=== PATIENT | male | born 1975 | race Caucasian/White ===

== ENCOUNTER 2022-10-24 19:51 | Observation (INO) ==
[2022-10-24] MEDS ORDERED: SODIUM CHLORIDE 1,000 ML IV STA (20:03)
[2022-10-24] MEDS ORDERED: ASPIRIN CHEWABLE PO STA (20:03)
[2022-10-24] MEDS ORDERED: NITROSTAT SL PRN ×2 (20:03→22:57)
--- NOTE | 2022-10-24 20:03 | ED.PDOC ---
General ED Provider: Dr. RYAN ALCANTARA MD Chief Complaint: Chest Pain Stated Complaint: PATIENT WITH A HISTORY OF HYPERTENSION, NONCOMPLAINT WITH MEDICATIONS COMPLAINS OF SHARP SUBSTERNAL CHEST PAIN INTERMITTENT X 1 WEEK. HAS OCCASIONAL DYSPNEA AND PAIN RADIATING TO HIS LEFT ARM. RATES HIS PAIN 4/10 SCALE. DENIES DIAPHORESIS OR PALPITATIONS. Time Seen by Provider: 10/24/22 20:02 Mode of Arrival: Walk-In Information Source: Patient Exam Limitations: No limitations Primary Care Provider: ALEXANDRA HARRIS Nursing and Triage Documentation Reviewed and Agree: Yes Does patient meet sepsis criteria?: No System Inflammatory Response Syndrome: Not Applicable Sepsis Protocol: For patient's 13 years and over: Temp is 96.8 and below OR 101 and greater Pulse >90 BPM Resp >20/minute Acutely Altered Mental Status Are patient's symptoms suggestive of a new infection, such as: -Pneumonia -Skin, Soft Tissue -Endocarditis -UTI -Bone, Joint Infection -Implantable Device -Acute Abdominal Infection -Wound Infection -Meningitis -Blood Stream Catheter Infection -Unknown Cardiovascular Complaint Exam Chest Pain Complaint/Exam Onset: Sudden Duration: PAST WEEK Symptoms Are: Still present Timing: Intermittent Length of Chest Pain Episodes: 2-3 HOURS Initial Severity: Moderate Current Severity: Moderate Location: Reports Diffuse Pain Radiates: Reports Left shoulder Character: Reports Sharp Aggravating: Reports None Alleviating: Reports None Associated Signs and Symptoms: Reports Short of air Related History: Reports Similar episode Related Surgical History: Reports None History of Healthcare-Acquired Pneumonia: Reports No AMI/ACS Risk Factors: Reports Hypertension (OFF MEDICATION) TAD Risk Factors: Reports Hypertension Pulmonary Embolism Risk Factors: Reports None Prior Care for this Complaint: No Recent Stress Test: No Recent Echo/LV Function: No JVD Present: No Subcutaneous Emphysema Present: No Diminshed Breath Sounds: No Reproducible Chest Wall Pain: No Bilateral Pulses Present: No Unequal Pulses Noted: No If Risk Factors for AMI/ACS Consider: Cardiac Enzymes and Serial Studies If Risk Factors for PE Consider: Chest CT with contrast If Risk Factors for TAD Consider: Chest CT with contrast Differential Diagnoses: Acute OK, ACS, Unstable Angina and Chest Wall Pain Review of Systems Review Of Systems Constitutional: Reports No symptoms Eyes: Reports No symptoms Ears, Nose, Mouth, Throat: Reports No symptoms Respiratory: Reports No symptoms and Short of air; Denies Cough or Orthopnea Cardiac: Reports Chest pain; Denies Edema, Irregular heart rate, Lightheadedness, Palpitations or Syncope GI: Reports No symptoms; Denies Abdomen distended, Abdominal pain or Blood streaked bowels : Reports No symptoms Musculoskeletal: Reports No symptoms Skin: Reports No symptoms Neurological: Denies Anxiety, Depressed or Emotional problems Endocrine: Reports No symptoms; Denies Excessive sweating, Flushing or Intolerance to cold Hematologic/Lymphatic: Reports No symptoms; Denies Anemia, Blood clots or Easy bleeding All Other Systems: Reviewed and Negative [facility] Social History Smoking and tobacco status: Current every day smoker Physical Exam Physical Exam Appearance: Reports Well-appearing Ill-appearing: Not Applicable Pain Distress: Not Applicable Eyes: Denies Conjunctiva inflammed, Conjunctiva pale or Right pupil size ENT: Reports Ears normal, Nose normal and Oropharynx normal; Denies TMs Occluded or Rhinorrhea Neck: Supple Respiratory: Reports Airway patent, Breath sounds clear and Breath sounds equal; Denies Breath sounds diminished or Respirations nonlabored Cardiovascular: Reports RRR, Pulses normal, No rub and No murmur; Denies Irregular rhythm, Tachycardia, Bradycardia or Abnormal pulses GI/: Reports Soft, Nontender, Bowel sounds normal and No Organomegaly; Denies Tender or Mass Musculoskeletal: Reports Normal strength, ROM intact and No calf tenderness; Denies Limited ROM Skin: Reports Warm and Normal color; Denies Pale, Diaphoretic or Cyanotic Neurological: Reports Sensation intact, Motor intact, Reflexes intact and Cranial nerves intact Psychiatric: Reports Affect appropriate and Mood appropriate; Denies Anxious or Depressed Interpretation Radiology Interpretation Radiology Interpretation By: ED Physician Radiology Results: Negative Exam Interpreted: Portable CXR Xray Comments: PORTABLE CHEST XRAY INTERPRETED BY MYSELF, NO ACUTE CARDIOPULMONARY PROCESS Spray Crew Time of Spray Crew Interpretation: 20:30 Rate: Normal Rhythm: Sinus Ectopy: None EKG Interpretation Time of EKG #1: 19:59 Rate: Normal Rhythm: Sinus Ectopy: None [place]: NL ST Segment: Normal Interpretation: EKG INTERPRETED BY MYSELF, NSR RATE 74, NORMAL AXIS, SHORT TN INTERVAL Time of EKG #2: 22:13 Rate: Normal Rhythm: Sinus Ectopy: None [place]: NL ST Segment: Normal EKG Interpretation: INTERPRETED BY MYSELF, NSR, RATE 68, NORMAL AXIS, NO ISCHEMIC CHANGES Re-Evaluation Re-Evaluation Time of Re-Evaluation: 20:45 Status: Improved Vital Signs Stable: Yes Pain Level: COMPLETE RESOLUTION OF CHEST PAIN AFTER NTG 0.4MG SL Appearance: NAD Lungs: Clear Skin: Warm and Dry Neuro: Alert and Oriented X3 CV: RRR Physician Notification Case Discussed Physician Notified: HOSPITALIST GREGORY Time of Notification: 22:48 Comments: PATIENT HISTORY OF HYPERTENSION, PRESENT ILLNESS AND HOSPITAL COURSE DISCUSSED FOR ADMIT TO OBSERVATION Critical Care Note Critical Care Note Total Critical Care Time (mins): 20 Course Course 10/24/22 20:10 10/24/22 20:10 Orders, Labs, Meds: Lab Review 10/24/22 20:10 WBC 8.71 RBC 5.79 Hgb 17.3 Hct 51.5 MCV 88.9 MCH 29.9 MCHC 33.6 RDW Coeff of Lesley 12.6 Plt Count 304 Immature Gran % (Auto) 0.5 Neut % (Auto) 66.9 Lymph % (Auto) 22.0 [place] % (Auto) 6.5 Eos % (Auto) 3.4 Baso % (Auto) 0.7 Neut # (Auto) 5.8 Lymph # (Auto) 1.9 [place] # (Auto) 0.6 Eos # (Auto) 0.3 Baso # (Auto) 0.1 Immature Gran # (Auto) 0.0 PT 9.8 INR 0.94 APTT 28.5 Sodium 137.4 Potassium 4.49 Chloride 104.4 Carbon Dioxide 30.2 H Anion Gap 7.29 BUN 16.6 Creatinine 1.00 Estimated GFR (MDRD) 80.00 BUN/Creatinine Ratio 16.60 Glucose 100.1 Calcium 8.57 Magnesium 2.12 Total Bilirubin 0.58 AST 35.2 ALT 48.3 Alkaline Phosphatase 108.8 Troponin I < 0.012 Total Protein 7.01 Albumin 4.19 Globulin 2.82 Albumin/Globulin Ratio 1.48 D-Dimer 208.72 Orders Category Date Time Status EKG-(ED ONLY) Stat CARDIO 10/24/22 20:03 Completed TELEMETRY MONITORING TELE CARE 10/24/22 20:03 Active IV [ED IV/MEDIPORT/POWERPORT] .ONCE EMERGENCY 10/24/22 20:03 Active CBC W/ AUTO DIFF Stat LAB 10/24/22 20:10 Completed CMP [COMPREHENSIVE METABOLIC PANEL] Stat LAB 10/24/22 20:10 Completed D-DIMER Stat LAB 10/24/22 20:10 Completed MAGNESIUM Stat LAB 10/24/22 20:10 Completed PT WITH INR Stat LAB 10/24/22 20:10 Completed PTT [PARTIAL THROMBOPLASTIN TIME] Stat LAB 10/24/22 20:10 Completed TROPONIN I Stat LAB 10/24/22 20:10 Completed 0.9 % Sodium Chloride [Saline Flush] MEDS 10/24/22 20:03 Active 1 syr IVF PRN PRN Acetaminophen [Tylenol] MEDS 10/24/22 20:43 Discontinued 650 mg PO ONCE ONE Aspirin [Aspirin Chewable] MEDS 10/24/22 20:03 Discontinued 324 mg PO ONCE STA Nitroglycerin [Nitro-Bid] MEDS 10/24/22 20:43 Discontinued 1 inch TD ONCE STA Nitroglycerin [Nitrostat] MEDS 10/24/22 20:03 Active 0.4 mg SL Q5MIN X 3 DOSES PRN Sodium Chloride 0.9% [Sodium Chloride] 1,000 ml MEDS 10/24/22 20:03 Active IV 50 mls/hr CHEST, 1V AP ONLY Stat RADS 10/24/22 20:03 Completed Medications Generic Name Dose Route Start Last Admin Trade Name Freq PRN Reason Stop Dose Admin Sodium Chloride 1,000 mls @ 50 mls/hr 10/24/22 20:03 10/24/22 20:12 Sodium Chloride IV 10/25/22 16:02 50 mls/hr .Q20H STA Administration Nitroglycerin 0.4 mg 10/24/22 20:03 10/24/22 20:12 Nitroglycerin 0.4 Mg Tab.Subl SL 0.4 mg Q5MIN X 3 DOSES PRN Administration Chest Pain Sodium Chloride 1 syr 10/24/22 20:03 0.9% Sodium Chloride 10 Ml Disp.Syrin IVF PRN PRN To flush IV Discontinued Medications Generic Name Dose Route Start Last Admin Trade Name Freq PRN Reason Stop Dose Admin Acetaminophen 650 mg 10/24/22 20:43 10/24/22 20:51 Acetaminophen 325 Mg Tablet PO 10/24/22 20:44 650 mg ONCE ONE Administration Aspirin 324 mg 10/24/22 20:03 10/24/22 20:12 Aspirin 81 Mg Tab.Chew PO 10/24/22 20:04 324 mg ONCE STA Administration Nitroglycerin 1 inch 10/24/22 20:43 10/24/22 21:02 Nitroglycerin 1 Gm Oint TD 10/24/22 20:44 1 inch ONCE STA Administration Vital Signs: Temp Pulse Resp BP Pulse Ox 10/24/22 21:22 69 16 131/93 H 96 10/24/22 19:54 99.4 F 75 18 168/99 H 98 AMI Core Clinical Trial Participant Clinical Trial Participant: No Palliative Care Palliative Care: none Statins Reason for not ordering Statins: not indicated Fibrinolytic Reason for not ordering Fibrinolytic: not indicated EKG Initial Interpretation EKG Initial Interpretation Date: 10/24/22 EKG Initial Interpretation Time: 19:59 DANE Risk Score Age >/= 65: No >/= 3 CAD Risk Factors: Yes Known CAD (Stenosis >/= 50%): No ASA Use in Past 7 Days: No Severe Angina (>/= 2 episodes in 24 hours): Yes EKG ST Changes >/= 0.5mm: No Postive Cardiac Marker: No DANE Total Score: 2 DANE Risk Score: Risk Score Odds of by 30D 0 0.1 (0.1-0.2) 1 0.3 (0.2-0.3) 2 0.4 (0.3-0.5) 3 0.7 (0.6-0.9) 4 1.2 (1.0-1.5) 5 2.2 (1.9-2.6) 6 3.0 (2.5-3.6) 7 4.8 (3.8-6.1) Discharge Plan Discharge Patient Disposition: PLACED OBSERVATION Discharge Problem: Acute chest pain Did you review [place] LITERARY AGENT for ALL controlled substances?: Not Applicable ED Provider: RYAN ALCANTARA Condition: Stable Physician Progress Note: MDM HISTORY OBTAINED BY PATIENT AND HIS FAMILY [] PATIENT WITH A HISTORY OF HYPERTENSION, NONCOMPLAINT WITH MEDICATIONS COMPLAINS OF SHARP SUBSTERNAL CHEST PAIN INTERMITTENT X 1 WEEK. HAS OCCASIONAL DYSPNEA AND PAIN RADIATING TO HIS LEFT ARM. RATES HIS PAIN 4/10 SCALE. DENIES DIAPHORESIS OR PALPITATION ADMINISTERED ASPIRIN 324MG ORALLY, NITROGLYCERIN 0.4MG SL WITH COMPLETE RESOLUTION OF PAIN PATIENT GIVEN TYLENOL 650MG ORALLY AND NITRO PASTE 1"ANTERIOR CHEST WALL 1958-EKG NSR RATE 74, NORMAL AXIS, SHORT TN INTERVAL NO ISCHEMIC CHANGES 2213 REPEAT EKG C/W NORMAL SINUS RHYTHM, RATE 68,NORMAL AXIS NO ISCHEMIC CHANGES, INTERPRETED BY MYSELF ALL LABS INTERPRETED BY MYSELF AND ARE WITHIN NORMAL LIMITS TROPONIN 0.012 DANE SCORE-2 DIFF DIAGNOSIS; 1) ACUTE CHEST PAIN 2)NONSTEMI 3)ACUTE CORONARY SYNDROME 4)PULMONARY EMBOLI DISCUSSED WITH HOSPITALIST GREGORY AT 2248 FOR ADMIT TO OBSERVATION
[2022-10-24 20:22] LABS: BASOPHILS # (AUTO) 0.1 K/uL (0-0.2); BASOPHILS % (AUTO) 0.7 % (0.0-3.0); EOSINOPHILS # (AUTO) 0.3 K/ul (0.0-0.7); EOSINOPHILS % (AUTO) 3.4 % (0.0-7.0); HEMATOCRIT 51.5 % (42.0-52.0); HEMOGLOBIN 17.3 g/dl (14.0-18.0); IMMATURE GRANULOCYTE % (AUTO) 0.5 % (0.0-5.0); LYMPHOCYTES # (AUTO) 1.9 K/uL (0.60-3.4); MEAN CORPUSCULAR HEMOGLOBIN 29.9 pg (27.0-31.0); MEAN CORPUSCULAR HGB CONC 33.6 (31.8-35.4); MEAN CORPUSCULAR VOLUME 88.9 fl (80.0-94.0); MONOCYTES # (AUTO) 0.6 K/uL (0.4-2.0); MONOCYTES % (AUTO) 6.5 (0-10); NEUTROPHILS # (AUTO) 5.8 K/ul (2.0-6.9); NEUTROPHILS % (AUTO) 66.9 % (42.2-75.2); PLATELET COUNT 304 10^3/uL (140-440); RDW COEFFICIENT OF VARIATION 12.6 % (11.6-14.8); RED BLOOD COUNT 5.79 10^6/ul (4.70-6.10); WHITE BLOOD COUNT 8.71 K/ul (4.2-10.2)
--- NOTE | 2022-10-24 20:26 | DI ---
EXAM: SINGLE VIEW OF THE CHEST. History: Dyspnea. Comparison: Chest radiograph 12/17/2020 FINDINGS: Heart size is normal. No consolidation. No pleural fluid and no pneumothorax. No acute osseous abnormalities. Impression: No acute cardiopulmonary process
[2022-10-24 20:34] LABS: ALANINE AMINOTRANSFERASE 48.3 U/L (0-50); ALBUMIN 4.19 g/dL (3.5-5.0); ALKALINE PHOSPHATASE 108.8 U/L (38-126); ASPARTATE AMINO TRANSFERASE 35.2 U/L (17-59); BILIRUBIN,TOTAL 0.58 mg/dL (0.2-1.3); BLOOD UREA NITROGEN 16.6 mg/dL (9-20); CALCIUM 8.57 mg/dL (8.4-10.2); CARBON DIOXIDE 30.2 mmol/L (22-30.0); CHLORIDE 104.4 mmol/L (98-107); GLUCOSE 100.1 mg/dL (74-106); MAGNESIUM 2.12 mg/dL (1.6-2.3); POTASSIUM 4.49 mmol/L (3.5-5.1); SODIUM 137.4 mmol/L (134.5-145); TOTAL PROTEIN 7.01 g/dL (6.3-8.2)
[2022-10-24] MEDS ORDERED: NITRO-BID TD STA (20:43)
[2022-10-24] MEDS ORDERED: TYLENOL PO ONE (20:43)
[2022-10-24 20:44] LABS: PARTIAL THROMBOPLASTIN TIME 28.5 SEC (23.9-40.0); PROTHROMBIN TIME 9.8 SEC (9.3-11.0)
[2022-10-24 20:46] LABS: TROPONIN I < 0.012 ng/ml (0.0000-0.120)
[2022-10-24] MEDS ORDERED: TYLENOL PO PRN (22:57)
[2022-10-24] MEDS ORDERED: ZOFRAN 4 MG/2 ML IVP PRN (22:59)
[2022-10-24 23:44] VITALS: BMI 29.2
[2022-10-25 05:19] LABS: BASOPHILS # (AUTO) 0.1 K/uL (0-0.2); BASOPHILS % (AUTO) 0.7 % (0.0-3.0); EOSINOPHILS # (AUTO) 0.3 K/ul (0.0-0.7); EOSINOPHILS % (AUTO) 3.7 % (0.0-7.0); HEMATOCRIT 48.5 % (42.0-52.0); HEMOGLOBIN 16.1 g/dl (14.0-18.0); IMMATURE GRANULOCYTE # (AUTO) 0.1 (0.0-1.0); IMMATURE GRANULOCYTE % (AUTO) 0.6 % (0.0-5.0); LYMPHOCYTES # (AUTO) 2.7 K/uL (0.60-3.4); LYMPHOCYTES % (AUTO) 33.4 (10.0-50.0); MEAN CORPUSCULAR HEMOGLOBIN 29.5 pg (27.0-31.0); MEAN CORPUSCULAR HGB CONC 33.2 (31.8-35.4); MEAN CORPUSCULAR VOLUME 88.8 fl (80.0-94.0); MONOCYTES # (AUTO) 0.6 K/uL (0.4-2.0); MONOCYTES % (AUTO) 7.6 (0-10); NEUTROPHILS # (AUTO) 4.3 K/ul (2.0-6.9); PLATELET COUNT 278 10^3/uL (140-440); RDW COEFFICIENT OF VARIATION 12.6 % (11.6-14.8); RED BLOOD COUNT 5.46 10^6/ul (4.70-6.10); WHITE BLOOD COUNT 8.03 K/ul (4.2-10.2)
[2022-10-25 05:32] LABS: ALANINE AMINOTRANSFERASE 43.3 U/L (0-50); ALBUMIN 3.69 g/dL (3.5-5.0); ALKALINE PHOSPHATASE 98.1 U/L (38-126); ASPARTATE AMINO TRANSFERASE 30.3 U/L (17-59); BILIRUBIN,TOTAL 0.51 mg/dL (0.2-1.3); BLOOD UREA NITROGEN 16.5 mg/dL (9-20); CALCIUM 8.28 mg/dL (8.4-10.2); CARBON DIOXIDE 31.5 mmol/L (22-30.0); CHLORIDE 104.9 mmol/L (98-107); CHOLESTEROL 89.6 mg/dL (0-200); CREATINE KINASE 45.4 U/L (55-170); CREATININE 0.95 mg/dL (0.60-1.10); GLUCOSE 97.2 mg/dL (74-106); HDL CHOLESTEROL 32.6 mg/dL (35-60); LDL CHOLESTEROL,CALCULATED 2 mmol/L; POTASSIUM 3.91 mmol/L (3.5-5.1); SODIUM 137.2 mmol/L (134.5-145); TOTAL PROTEIN 6.31 g/dL (6.3-8.2); TRIGLYCERIDES 277.1 mg/dL (0-150); VLDL CHOLESTEROL 55 mg/dL (2-30)
[2022-10-25 06:00] LABS: TROPONIN I < 0.012 ng/ml (0.0000-0.120)
[2022-10-25] MEDS ORDERED: ASPIRIN EC PO SCH (08:30)
[2022-10-25 10:07] VITALS: BP 154/87; RESP 15; TEMP 97.1
--- NOTE | 2022-10-25 10:56 | PCM.SS ---
Provider Provider: GREGORY SOLARES PA-C, [facility] Admission Date Admission Date: 10/24/22 Discharge Date Discharge Date: 10/25/22 Primary Care Physician Primary Care Physician: None Chief Complaint Reason For Visit: CHEST PAIN History of Present Illness History of Present Illness: Admitted 10/24/22 22:57, this 47 year old /WHITE/M presented to ER with complains of chest pain/pressure on and off for past 1 week. He denies radiation to jaw or shoulder, sometimes has pain in back shoulder blade. Denies diaphoresis, n/v. Has no significant cardiac history. States mother had a heart attack in her 30s. He is a chronic smoker. Doesn't take any medications and doesn't have a PCP. No history of stress tests or echos. He states he hasn't had pain since he was in ER last night, the nitro SL helped. Trops trended negative. EKGs negative with no ST changes. Trigs elevated. A1c normal. CXR negative. Vitals stable. Patient remains chest pain free. Discussed benefit of outpatient stress test. Encouraged smoking cessation. Recommended baby aspirin daily and consider otc fish oils and diet changes for trigs of 277. Patient given information on local PCPs, will call for apt tomorrow. [facility] Surgical History History of cholecystectomy Z90.49 - Acquired absence of other specified parts of digestive tract (ICD- 10) S/P appendectomy Z90.49 - Acquired absence of other specified parts of digestive tract (ICD- 10) Family History (Updated 10/25/22 @ 11:15 by GREGORY SOLARES PA-C) Mother Myocardial infarct Cancer Other Hypertension Social History (Updated 10/25/22 @ 11:16 by GREGORY SOLARES PA-C) Smoking and tobacco status: Current every day smoker Tobacco: How many years used: 20 Alcohol intake: never Substance use type: does not use Current occupational status: employed Current occupation: [employer] Medications Mecications: Medications at Discharge (Home Meds & RX) aspirin 81 mg chewable tablet 81 mg PO DAILY #30 tabs 10/25/22 Allergies Allergies Allergy/AdvReac Type Severity Reaction Status Date / Time No Known Allergies Allergy Verified 10/24/22 19:57 Review of Systems Constitutional: Denies Fever, Fatigue, Chills or Weakness Head: Reports Normocephalic and Atraumatic Eyes: Denies Vision Changes Ears: Denies Pain or Drainage Nose: Denies Post Nasal Drip or Congestion Mouth: Denies Sores or Pain Throat: Denies Sore Throat or Pain Cardiovascular: Reports Chest pain and Chest Pressure; Denies Edema Respiratory: Denies Cough or Shortness of air Gastrointestinal: Denies Nausea, Vomiting or Constipation Genitourinary: Denies Dysuria or Frequency Musculoskeletal: Denies Muscle Pain or Neck Pain Dermatologic: Denies Rashes Neurological: Denies Headache, Dizziness, Syncope or Weakness Psychiatric: Denies Depression, Anxiety or Suicidal Physical Examination Appearance: Positive Well-appearing, Well-nourished, No Apparent Distress and Alert and Oriented x3 Head: Positive Normocephalic and Atraumatic Eyes: Positive ZAHRA Neck: Positive Supple, Non-Tender and Trachea Midline Heart: Positive RRR Respiratory: Positive Breath Sounds Clear, Bilaterally, Breath Sounds Equal and Respirations Nonlabored GI/: Positive Soft, Nontender and Bowel sounds normal Extremities: Negative Edema Neurological: Positive Cranial nerves intact and Normal Gait Psychiatric: Positive Normal Judgement, Normal Insight, Affect Appropriate and Mood Appropriate Vital Signs (Last 4 Hours) Vital Signs Last 4 Hours: Vital Signs: Last 4 Hours 10/25/22 06:57 10/25/22 10:00 10/25/22 08:42 Temperature 97.1 F L Temperature Source Temporal Artery Scan Pulse Rate 72 Respiratory Rate 15 16 Blood Pressure 154/87 H Blood Pressure Mean 109 Blood Pressure Location Right Radial Artery Blood Pressure Position Supine O2 Sat by Pulse Oximetry 95 Oxygen Delivery Method Room Air Room Air Telemetry Type Remote Telemetry Telemetry Monitoring Continues Telemetry Heart Rate 55 L EKG OR Interval 0.16 EKG QRS Interval 0.08 Telemetry Strip Reading SINUS JORDEN Labs This Visit Labs This Visit: Labs This Visit 10/24/22 10/24/22 10/25/22 20:10 22:10 04:55 WBC 8.71 8.03 RBC 5.79 5.46 Hgb 17.3 16.1 Hct 51.5 48.5 MCV 88.9 88.8 MCH 29.9 29.5 MCHC 33.6 33.2 RDW Coeff of Lesley 12.6 12.6 Plt Count 304 278 Immature Gran % (Auto) 0.5 0.6 Neut % (Auto) 66.9 54.0 Lymph % (Auto) 22.0 33.4 [place] % (Auto) 6.5 7.6 Eos % (Auto) 3.4 3.7 Baso % (Auto) 0.7 0.7 Neut # (Auto) 5.8 4.3 Lymph # (Auto) 1.9 2.7 [place] # (Auto) 0.6 0.6 Eos # (Auto) 0.3 0.3 Baso # (Auto) 0.1 0.1 Immature Gran # (Auto) 0.0 0.1 PT 9.8 INR 0.94 APTT 28.5 Sodium 137.4 137.2 Potassium 4.49 3.91 Chloride 104.4 104.9 Carbon Dioxide 30.2 H 31.5 H Anion Gap 7.29 4.71 BUN 16.6 16.5 Creatinine 1.00 0.95 Estimated GFR (MDRD) 80.00 85.00 BUN/Creatinine Ratio 16.60 17.36 Glucose 100.1 97.2 Hemoglobin A1c 5.44 Calcium 8.57 8.28 L Magnesium 2.12 Total Bilirubin 0.58 0.51 AST 35.2 30.3 ALT 48.3 43.3 Alkaline Phosphatase 108.8 98.1 Total Creatine Kinase 45.4 L Troponin I < 0.012 < 0.012 < 0.012 Total Protein 7.01 6.31 Albumin 4.19 3.69 Globulin 2.82 2.62 Albumin/Globulin Ratio 1.48 1.40 Triglycerides 277.1 H Cholesterol 89.6 LDL Cholesterol, Calc 2 VLDL Cholesterol 55 H HDL Cholesterol 32.6 L Cholesterol/HDL Ratio 2.7 L D-Dimer 208.72 Review Review Statement: I have independently reviewed and interpreted the labs/EKGs/imaging that were ordered by the ER provider. I have reviewed all outside records that are available currently in our EMR including imaging/notes/labs from previous visits. EXAM: SINGLE VIEW OF THE CHEST. History: Dyspnea. Comparison: Chest radiograph 12/17/2020 FINDINGS: Heart size is normal. No consolidation. No pleural fluid and no pneumothorax. No acute osseous abnormalities. Impression: No acute cardiopulmonary process Plan Reccomendations/Plan: 1. Chest pain - Trend trops and EKGs. Check lipid and a1c. Nitro prn for pain. Zofran prn for nausea. Vitals q4hrs. Daily baby aspirin. Patient remained chest pain free. Trops negative. EKGs with no changes. Did not require zofran or nitro. Recommended daily baby aspirin and fish oil. See HPI. F/u outpatient with PCP. Recommend outpatient stress test +/- echo. 3 MINUTES SPENT DISCUSSING SMOKING CESSATION AND BENEFITS. 3 MINUTES SPENT DISCUSSING ADVANCED DIRECTIVES. PATIENT IS FULL CODE. DISCHARGE TO HOME DX: CHEST PAIN TAKE BABY ASPIRIN DAILY F/U WITH PCP, CONSIDER OUTPATIENT STRESS TEST TAKE FISH OIL FOR HIGH TRIGLYCERIDES ACTIVITY: TOLERATED DIET: HEART HEALTHY PLEASE CALL THE [facility] TO ESTABLISH A PCP.INFORMATION SHEET PROVIDED. Review With Patient Reviewed with Patient and Family: Patient and family have been counseled on condition and care plan and have no immediate questions. I have personally discussed and reviewed the patient's visit/current labs/imaging/decision making with Dr. Duy Arce, my supervising attending. Total number of minutes spent with patient 85 min. More than 50% of the time spent with this patient was devoted to counseling and coordination of care. Time of Admission:10/24/22 22:57 Time of Discharge: 10/25/21 10:30 Discharge Plan Discharge Discharge Orders: Discharge Patient (ONCE); Ordered 10/25/22 Ordered By: GREGORY SOLARES Activity Restrictions/Additional Instructions: DISCHARGE TO HOME DX: CHEST PAIN TAKE BABY ASPIRIN DAILY F/U WITH PCP, CONSIDER OUTPATIENT STRESS TEST TAKE FISH OIL FOR HIGH TRIGLYCERIDES ACTIVITY: TOLERATED DIET: HEART HEALTHY PLEASE CALL THE [facility] TO ESTABLISH A PCP.INFORMATION SHEET PROVIDED. Instructions: Chest Pain (GEN) Patient Disposition: HOME SELF-CARE Prescriptions: New aspirin 81 mg tablet,chewable 81 mg PO DAILY Qty: 30 0RF Rx Instructions: Over the counter Did you review [place] CUSTOMS OPENER VERIFIER PACKER for ALL controlled substances?: Not Applicable Discussed opioids are addictive and Narcan is available by prescription or from pharmacy.: No Condition: Stable
== END 2022-10-25 10:58 | disposition home or self-care (01) ==
LOC: ED 19:51 → MEDSURG B 19:51
PROVIDERS: ADMIT Hospitalist; ATTEND Physician Assistant